=== PATIENT | female | born 1980 | race Caucasian/White ===

== ENCOUNTER 2022-04-20 | Emergency (ER) | payer OTHER | END 2022-04-20 02:00 | disposition home or self-care (01) | LOC: ER1 | DX: M25.561 Pain in right knee (principal); M25.562 Pain in left knee; I50.9 Heart failure, unspecified; J44.9 Chronic obstructive pulmonary disease, unspecified; E11.9 Type 2 diabetes mellitus without complications; F17.210 Nicotine dependence, cigarettes, uncomplicated; E66.01 Morbid (severe) obesity due to excess calories | CPT/HCPCS: 73560; 93005; 99284 ==